=== PATIENT | female | born 1995 | race African-American/Black ===

== ENCOUNTER 2022-06-26 10:53 | Emergency (ER) | payer MEDICAID ==
[~2022-06-26] VITALS: Ht 154.9 cm; Wt 76.4 kg
[2022-06-26 11:02] VITALS: BP 135/84
[2022-06-26 11:29] LABS: URINE HCG NEGATIVE (NEG)
[2022-06-26 11:31] LABS: CLARITY,URINE CLEAR (Clear); COLOR,URINE YELLOW (Yellow); GLUCOSE, URINE NEGATIVE (Neg); KETONES,URINE NEGATIVE (Neg); LEUKOCYTE ESTERASE ,URINE NEGATIVE (Neg); NITRITES, URINE NEGATIVE (Neg); OCCULT BLOOD,URINE NEGATIVE (Neg); PROTEIN,URINE NEGATIVE (Neg); UROBILINOGEN,URINE 0.2 E.U/dL (0.2-1.0)
[2022-06-26 11:33] LABS: UA COLLECTION TYPE CLN CATCH MIDSTREAM
[2022-06-26] MEDS ORDERED: azithromycin 250mg tablet PO ONE (13:40)
[2022-06-26] MEDS ORDERED: DOXY-1 PO ×2 (13:41)
[2022-06-26] MEDS ORDERED: METR-159 PO (13:43)
--- NOTE | 2022-06-28 11:59 | NUR ---
Spoke with patient regarding previously prescribed medication for flagyl, patient states that her pharmacy had called her and notified her regarding previous allergic reaction to flagyl. patient called requesting a changed in prescription. Dr. Lewis gave written order for clindamycin cream 2% 1 5 gram application intravaginally q HS x 7days. Called in prescription for requested pharmacy [facility] spoke with pharmacist.
== END 2022-06-26 13:53 | disposition home or self-care (01) ==
LOC: ER 10:56
DX: N93.9 Abnormal uterine and vaginal bleeding, unspecified (principal); Z88.0 Allergy status to penicillin; Z88.6 Allergy status to analgesic agent; Z88.5 Allergy status to narcotic agent
CPT/HCPCS: 81003; 81025; 87210; 96365; 99283; 99284